=== PATIENT | male | born 1960 | race Caucasian/White ===

== ENCOUNTER 2017-07-27 09:01 | Inpatient (IN) | payer OTHER ==
[2017-07-27] MEDS: SOD CHLORIDE 0.9% 1,000 ML IV ×3 (09:31→11:19)
[2017-07-27] MEDS: ONDANSETRON 4 MG INJ IV ×2 (09:31→10:06)
[2017-07-27 09:40] LABS: ADD MAN DIFF? NO
[2017-07-27 09:43] LABS: ABNORMAL IP MESSAGE 1; BASOPHIL # 0.1 10^3/ul (0.0-0.1); BASOPHILS % 0.4 % (0.0-2.0); HEMATOCRIT 51.3 % (42.0-52.0); HEMOGLOBIN 16.7 g/dl (14.0-18.0); MEAN CORPUSCULAR HEMOGLOBIN 29.6 pg (29.0-33.0); MEAN CORPUSCULAR HGB CONC 32.6 g/dl (32.0-37.0); MEAN CORPUSCULAR VOLUME 90.8 fl (82.0-101.0); MEAN PLATELET VOLUME 10.7 fl (7.4-10.4); MONOCYTE # 2.4 10^3/ul (0.3-0.9); MONOCYTES % 9.8 % (0.0-11.0); NEUTROPHIL # 20.7 10^3/ul (1.6-7.5); NEUTROPHILS % 85.3 % (39.0-77.0); PLATELET COUNT 330 10^3/UL (140-415); POSITIVE DIFF @See below; RED BLOOD COUNT 5.65 10^6/ul (4.70-6.10)
[2017-07-27 09:43] LABS: WHITE BLOOD COUNT 24.2 10^3/ul (4.8-10.8)
[2017-07-27 10:01] LABS: ALANINE AMINOTRANSFERASE 96 IU/L (13-69); ALBUMIN 5.2 g/dl (3.3-4.9); ALBUMIN/GLOBULIN RATIO 1.23; ALKALINE PHOSPHATASE 84 IU/L (42-121); ANION GAP 42 (8-16); ASPARTATE AMINO TRANSFERASE 94 IU/L (15-46); BILIRUBIN,INDIRECT 0.2 mg/dl (0-1.1); BILIRUBIN,TOTAL 0.2 mg/dl (0.2-1.3); BLOOD UREA NITROGEN 19 mg/dl (7-20); CARBON DIOXIDE 13 mmol/L (21-31); CHLORIDE 103 mmol/L (97-110); CREATININE 1.73 mg/dl (0.61-1.24); GLUCOSE 127 mg/dl (70-220); POTASSIUM 4.3 mmol/L (3.5-5.1); SODIUM 154 mmol/L (135-144); TOTAL PROTEIN 9.4 g/dl (6.1-8.1)
[2017-07-27 10:02] LABS: ACETAMINOPHEN < 10.0 ug/ml (10.0-30.0); ETHANOL < 10.0 mg/dl; SALICYLATE < 1.0 mg/dl (5.0-30.0)
[2017-07-27] MEDS: PANTOPRAZOLE 40 MG INJ IV ×2 (10:06→18:08)
[2017-07-27] MEDS: METOCLOPRAMIDE 10 MG INJ IV (10:06)
[2017-07-27 10:39] LABS: ADD UMIC YES; UR ASCORBIC ACID NEGATIVE (NEGATIVE); UR BACTERIA FEW /HPF (NONE SEEN); UR BILIRUBIN (Dip) NEGATIVE (NEGATIVE); UR BLOOD (Dip) 1+ mg/dL (NEGATIVE); UR CLARITY SLIGHTLY CLOUDY (CLEAR); UR COLOR YELLOW (YELLOW); UR GLUCOSE (Dip) 2+ mg/dL (NEGATIVE); UR HYALINE CAST FEW /HPF (NONE SEEN); UR KETONES (Dip) NEGATIVE (NEGATIVE); UR LEUKOCYTE ESTERASE (Dip) NEGATIVE Leu/ul (NEGATIVE); UR MUCUS FEW /HPF (NONE SEEN); UR NITRITE (Dip) NEGATIVE (NEGATIVE); UR RBC 0 /HPF (0-5); UR SPECIFIC GRAVITY (Dip) 1.017 (1.003-1.030); UR TOTAL PROTEIN (Dip) 1+ mg/dl (NEGATIVE); UR UROBILINOGEN (Dip) 2+ mg/dL (NEGATIVE); UR WBC 1 /HPF (0-5)
[2017-07-27 10:50] LABS: CANNABINOIDS Positive (NEGATIVE)
[2017-07-27 10:51] LABS: BARBITURATES Negative (NEGATIVE); BENZODIAZEPINES Negative (NEGATIVE); COCAINE Negative (NEGATIVE); OPIATES Positive (NEGATIVE)
[2017-07-27 10:52] LABS: AMPHETAMINE/METHAMPHETAMINE POSITIVE (NEGATIVE)
[2017-07-27] MEDS: CEFTRIAXONE 1 GM/50 ML (PMX) 50 ML IVPB (10:54)
[2017-07-27 11:37] LABS: LACTIC ACID 9.9 mmol/L (0.5-2.0)
[2017-07-27] MEDS ORDERED: NORepinephrine 8MG/250 ML (PMX 250 ML IV (13:09)
[2017-07-27 13:29] LABS: LACTIC ACID 3.1 mmol/L (0.5-2.0)
[2017-07-27] MEDS: NORepinephrine 8MG/250 ML (PMX 250 ML IV (13:57)
[2017-07-27] MEDS ORDERED: LORAZEPAM 0.5 MG TAB PO (15:30)
[2017-07-27] MEDS ORDERED: HYDROCODONE/APAP (5/325) TAB PO (15:30)
[2017-07-27] MEDS ORDERED: NACL 0.9% 3 ML SYG IV (15:30)
[2017-07-27] MEDS ORDERED: ONDANSETRON 4 MG INJ IV (15:30)
[2017-07-27] MEDS ORDERED: ACETAMINOPHEN 325 MG TAB PO (15:30)
[2017-07-27 15:38] LABS: HEMOGLOBIN A1C 4.9 % (0-5.9)
[2017-07-27 15:57] LABS: LACTIC ACID 3.3 mmol/L (0.5-2.0)
[2017-07-27 16:02] LABS: ADD MAN DIFF? NO
[2017-07-27 16:04] LABS: WHITE BLOOD COUNT 20.4 10^3/ul (4.8-10.8)
[2017-07-27 16:04] LABS: ABNORMAL IP MESSAGE 1; BASOPHILS % 0.1 % (0.0-2.0); HEMATOCRIT 40.2 % (42.0-52.0); HEMOGLOBIN 13.9 g/dl (14.0-18.0); LYMPHOCYTES # 0.7 10^3/ul (0.8-2.9); LYMPHOCYTES % 3.2 % (15.0-51.0); MEAN CORPUSCULAR HEMOGLOBIN 29.6 pg (29.0-33.0); MEAN CORPUSCULAR HGB CONC 34.6 g/dl (32.0-37.0); MEAN CORPUSCULAR VOLUME 85.5 fl (82.0-101.0); MEAN PLATELET VOLUME 10.4 fl (7.4-10.4); MONOCYTE # 1.6 10^3/ul (0.3-0.9); MONOCYTES % 7.8 % (0.0-11.0); NEUTROPHIL # 17.9 10^3/ul (1.6-7.5); NEUTROPHILS % 88.1 % (39.0-77.0); PLATELET COUNT 208 10^3/UL (140-415); POSITIVE DIFF @See below
[2017-07-27 16:23] LABS: INR 1.14; PROTIME 14.8 Sec (11.9-14.9); PT RATIO 1.2
[2017-07-27 16:24] LABS: PARTIAL THROMBOPLASTIN TIME 29.3 Sec (25.0-35.0)
[2017-07-27 16:27] LABS: CREATINE KINASE 662 IU/L (23-200)
[2017-07-27 16:39] LABS: CK INDEX 3.7
[2017-07-27] MEDS: DEXTROSE 5% 1,000 ML IV (16:39)
[2017-07-27 16:40] LABS: TROPONIN-I 0.379 ng/ml (0.00-0.12)
[2017-07-27 17:15] LABS: HIV 1&2 ANTIBODY NEGATIVE (NEGATIVE)
[2017-07-27 17:28] LABS: ANION GAP 16 (8-16); BLOOD UREA NITROGEN 21 mg/dl (7-20); CALCIUM 7.8 mg/dl (8.4-10.2); CARBON DIOXIDE 25 mmol/L (21-31); CHLORIDE 110 mmol/L (97-110); CREATININE 1.07 mg/dl (0.61-1.24); GLUCOSE 117 mg/dl (70-220); MAGNESIUM 2.1 mg/dl (1.7-2.5); POTASSIUM 4.9 mmol/L (3.5-5.1); SODIUM 146 mmol/L (135-144)
[2017-07-27 17:43] LABS: B-TYPE NATRIURETIC PEPTIDE 650 PG/ML (0-125)
[2017-07-27 17:51] LABS: FREE T4 (FREE THYROXINE) 1.07 ng/dl (0.64-1.79)
[2017-07-27 18:05] LABS: THYROID STIMULATING HORMONE 0.678 MIU/L (0.465-4.680)
[2017-07-27] MEDS ORDERED: CEFEPIME 1GM/50 ML (PMX) 50 ML IVPB (21:00)
[2017-07-27] MEDS: PIPER-TAZO 3.375 GM IV (PMX) 100 ML IVPB (22:12)
[2017-07-27 22:37] LABS: CREATINE KINASE 763 IU/L (23-200)
[2017-07-27 22:42] LABS: LACTIC ACID 2.4 mmol/L (0.5-2.0)
[2017-07-27 22:49] LABS: CK INDEX 3.5
[2017-07-27 22:53] LABS: TROPONIN-I 0.352 ng/ml (0.00-0.12)
[2017-07-28 05:02] LABS: ADD MAN DIFF? NO
[2017-07-28 05:05] LABS: BASOPHILS % 0.1 % (0.0-2.0); EOSINOPHILS % 0.1 % (0.0-7.0); HEMATOCRIT 33.4 % (42.0-52.0); HEMOGLOBIN 11.5 g/dl (14.0-18.0); LYMPHOCYTES # 1.7 10^3/ul (0.8-2.9); LYMPHOCYTES % 10.6 % (15.0-51.0); MEAN CORPUSCULAR HEMOGLOBIN 29.1 pg (29.0-33.0); MEAN CORPUSCULAR HGB CONC 34.4 g/dl (32.0-37.0); MEAN CORPUSCULAR VOLUME 84.6 fl (82.0-101.0); MEAN PLATELET VOLUME 10.8 fl (7.4-10.4); MONOCYTE # 1.3 10^3/ul (0.3-0.9); NEUTROPHIL # 12.5 10^3/ul (1.6-7.5); NEUTROPHILS % 80.6 % (39.0-77.0); PLATELET COUNT 150 10^3/UL (140-415); RED BLOOD COUNT 3.95 10^6/ul (4.70-6.10); RED CELL DISTRIBUTION WIDTH 13.2 % (11.5-14.5)
[2017-07-28 05:05] LABS: WHITE BLOOD COUNT 15.6 10^3/ul (4.8-10.8)
[2017-07-28 05:22] LABS: LACTIC ACID 1.2 mmol/L (0.5-2.0)
[2017-07-28 05:23] LABS: CHOL/HDL RATIO 2.8 RATIO; CHOLESTEROL 91 mg/dl (100-200); CREATINE KINASE 671 IU/L (23-200); HDL CHOLESTEROL 32 mg/dl (28-71); LDL CHOLESTEROL,CALCULATED 48 mg/dl; MAGNESIUM 2.1 mg/dl (1.7-2.5); TRIGLYCERIDES 53 mg/dl (0-149)
[2017-07-28 05:23] LABS: PHOSPHORUS 3.7 mg/dl (2.5-4.9)
[2017-07-28 05:24] LABS: ALANINE AMINOTRANSFERASE 71 IU/L (13-69); ALBUMIN 2.9 g/dl (3.3-4.9); ALBUMIN/GLOBULIN RATIO 0.96; ALKALINE PHOSPHATASE 46 IU/L (42-121); ANION GAP 11 (8-16); ASPARTATE AMINO TRANSFERASE 60 IU/L (15-46); BILIRUBIN,INDIRECT 0.2 mg/dl (0-1.1); BILIRUBIN,TOTAL 0.2 mg/dl (0.2-1.3); BLOOD UREA NITROGEN 17 mg/dl (7-20); CARBON DIOXIDE 26 mmol/L (21-31); CHLORIDE 109 mmol/L (97-110); CREATININE 1.03 mg/dl (0.61-1.24); GLUCOSE 97 mg/dl (70-220); POTASSIUM 4.3 mmol/L (3.5-5.1); SODIUM 142 mmol/L (135-144); TOTAL PROTEIN 5.9 g/dl (6.1-8.1)
[2017-07-28 05:35] LABS: CK INDEX 3.5
[2017-07-28 05:38] LABS: TROPONIN-I 0.408 ng/ml (0.00-0.12)
[2017-07-28] MEDS ORDERED: PANTOPRAZOLE 40 MG INJ IV (06:00)
[2017-07-28] MEDS: PIPER-TAZO 3.375 GM IV (PMX) 100 ML IVPB ×3 (06:30→22:29)
[2017-07-28] MEDS: PANTOPRAZOLE 40 MG INJ IV ×2 (06:30→18:38)
[2017-07-28] MEDS: FUROSEMIDE 20 MG INJ IV (09:08)
[2017-07-28 10:17] LABS: B-TYPE NATRIURETIC PEPTIDE 1320 PG/ML (0-125)
[2017-07-28 15:09] LABS: CREATINE KINASE 576 IU/L (23-200)
[2017-07-28 15:19] LABS: CK INDEX 2.2
[2017-07-28 15:30] LABS: TROPONIN-I 0.272 ng/ml (0.00-0.12)
[2017-07-29 05:25] LABS: ADD MAN DIFF? NO
[2017-07-29 05:27] LABS: WHITE BLOOD COUNT 10.2 10^3/ul (4.8-10.8)
[2017-07-29 05:27] LABS: BASOPHIL # 0.1 10^3/ul (0.0-0.1); BASOPHILS % 0.5 % (0.0-2.0); EOSINOPHILS # 0.1 10^3/ul (0.0-0.5); EOSINOPHILS % 1.4 % (0.0-7.0); HEMATOCRIT 32.4 % (42.0-52.0); HEMOGLOBIN 11.5 g/dl (14.0-18.0); LYMPHOCYTES # 1.8 10^3/ul (0.8-2.9); LYMPHOCYTES % 17.7 % (15.0-51.0); MEAN CORPUSCULAR HGB CONC 35.5 g/dl (32.0-37.0); MEAN CORPUSCULAR VOLUME 84.6 fl (82.0-101.0); MONOCYTE # 0.9 10^3/ul (0.3-0.9); NEUTROPHIL # 7.3 10^3/ul (1.6-7.5); NEUTROPHILS % 71.1 % (39.0-77.0); PLATELET COUNT 132 10^3/UL (140-415); RED BLOOD COUNT 3.83 10^6/ul (4.70-6.10); RED CELL DISTRIBUTION WIDTH 12.9 % (11.5-14.5)
[2017-07-29] MEDS: PIPER-TAZO 3.375 GM IV (PMX) 100 ML IVPB ×3 (05:43→21:19)
[2017-07-29] MEDS: PANTOPRAZOLE 40 MG INJ IV ×2 (05:43→17:28)
[2017-07-29 05:49] LABS: PHOSPHORUS 2.4 mg/dl (2.5-4.9)
[2017-07-29 05:49] LABS: ANION GAP 11 (8-16); BLOOD UREA NITROGEN 12 mg/dl (7-20); CALCIUM 8.4 mg/dl (8.4-10.2); CARBON DIOXIDE 30 mmol/L (21-31); CHLORIDE 107 mmol/L (97-110); CREATININE 0.88 mg/dl (0.61-1.24); GLUCOSE 99 mg/dl (70-220); MAGNESIUM 1.9 mg/dl (1.7-2.5); POTASSIUM 3.8 mmol/L (3.5-5.1); SODIUM 144 mmol/L (135-144)
[2017-07-29 05:58] LABS: CREATINE KINASE 354 IU/L (23-200)
[2017-07-29 06:31] LABS: CK INDEX 1.4; CK-MB 4.88 ng/ml (0.0-2.4); TROPONIN-I 0.187 ng/ml (0.00-0.12)
[2017-07-29] MEDS: FUROSEMIDE 20 MG INJ IV (08:46)
[2017-07-29] MEDS: LORAZEPAM 2 MG INJ IV (21:29)
[2017-07-30 05:55] LABS: WHITE BLOOD COUNT 8.9 10^3/ul (4.8-10.8)
[2017-07-30 05:55] LABS: ADD MAN DIFF? NO; BASOPHILS % 0.5 % (0.0-2.0); EOSINOPHILS # 0.2 10^3/ul (0.0-0.5); EOSINOPHILS % 2.3 % (0.0-7.0); HEMOGLOBIN 13.4 g/dl (14.0-18.0); LYMPHOCYTES # 1.9 10^3/ul (0.8-2.9); LYMPHOCYTES % 21.4 % (15.0-51.0); MEAN CORPUSCULAR HEMOGLOBIN 29.6 pg (29.0-33.0); MEAN CORPUSCULAR HGB CONC 35.3 g/dl (32.0-37.0); MEAN CORPUSCULAR VOLUME 83.9 fl (82.0-101.0); MEAN PLATELET VOLUME 10.9 fl (7.4-10.4); MONOCYTE # 0.8 10^3/ul (0.3-0.9); MONOCYTES % 8.8 % (0.0-11.0); NEUTROPHIL # 5.9 10^3/ul (1.6-7.5); NEUTROPHILS % 66.7 % (39.0-77.0); PLATELET COUNT 148 10^3/UL (140-415); RED BLOOD COUNT 4.53 10^6/ul (4.70-6.10); RED CELL DISTRIBUTION WIDTH 12.7 % (11.5-14.5)
[2017-07-30] MEDS: PANTOPRAZOLE 40 MG INJ IV (06:05)
[2017-07-30] MEDS: PIPER-TAZO 3.375 GM IV (PMX) 100 ML IVPB (06:05)
[2017-07-30 06:15] LABS: CREATINE KINASE 168 IU/L (23-200)
[2017-07-30 06:18] LABS: PHOSPHORUS 3.4 mg/dl (2.5-4.9)
[2017-07-30 06:18] LABS: MAGNESIUM 1.7 mg/dl (1.7-2.5)
[2017-07-30 06:22] LABS: ALANINE AMINOTRANSFERASE 58 IU/L (13-69); ALBUMIN 3.9 g/dl (3.3-4.9); ALBUMIN/GLOBULIN RATIO 1.14; ALKALINE PHOSPHATASE 49 IU/L (42-121); ANION GAP 15 (8-16); ASPARTATE AMINO TRANSFERASE 40 IU/L (15-46); BILIRUBIN,INDIRECT 0.7 mg/dl (0-1.1); BILIRUBIN,TOTAL 0.7 mg/dl (0.2-1.3); BLOOD UREA NITROGEN 12 mg/dl (7-20); CARBON DIOXIDE 26 mmol/L (21-31); CHLORIDE 105 mmol/L (97-110); CREATININE 0.72 mg/dl (0.61-1.24); GLUCOSE 96 mg/dl (70-220); POTASSIUM 3.7 mmol/L (3.5-5.1); SODIUM 142 mmol/L (135-144); TOTAL PROTEIN 7.3 g/dl (6.1-8.1)
[2017-07-30 06:26] LABS: CK INDEX 0.7; TROPONIN-I 0.067 ng/ml (0.00-0.12)
[2017-07-30] MEDS: FUROSEMIDE 20 MG INJ IV (08:46)
== END 2017-07-30 14:44 | disposition left against medical advice (07) | DRG 871 ==
LOC: MS4 07-29 13:01 → E/R 09:01 → ICU 13:37
DX: A41.9 Sepsis, unspecified organism (principal); R65.21 Severe sepsis with septic shock; G92 Toxic encephalopathy; I50.23 Acute on chronic systolic (congestive) heart failure; I21.A1 Myocardial infarction type 2; N17.9 Acute kidney failure, unspecified; E87.2 Acidosis; E87.0 Hyperosmolality and hypernatremia; M62.82 Rhabdomyolysis; I42.9 Cardiomyopathy, unspecified; F11.188 Opioid abuse with other opioid-induced disorder; B18.2 Chronic viral hepatitis C; F15.188 Other stimulant abuse with other stimulant-induced disorder; D64.9 Anemia, unspecified; K74.60 Unspecified cirrhosis of liver
CPT/HCPCS: 36415; 70450; 71045; 80048; 80053; 80061; 80306; 80307; 81001; 82550; 82553; 83036; 83605; 83735; 83880; 84100; 84439; 84443; 84484; 85025; 85610; 85730; 86703; 87040; 87070; 87081; 87086; 93005; 93306; 96361; 96365; 96375; 96376; 99291-25

== ENCOUNTER 2017-07-30 15:46 | Emergency (ER) | payer OTHER | END 2017-07-30 17:00 | disposition home or self-care (01) | LOC: E/R 15:46 | DX: T81.89XA Other complications of procedures, not elsewhere classified, initial encounter (principal); J44.9 Chronic obstructive pulmonary disease, unspecified; Y65.8 Other specified misadventures during surgical and medical care; Z87.891 Personal history of nicotine dependence | CPT/HCPCS: 12001; 99282-25 ==